=== PATIENT | female | born 1950 | race Caucasian/White ===

== ENCOUNTER → 2020-03-15 | Outpatient (CLI) | payer OTHER ==
[~2020-03-15] MED LIST: HYDROCODON-ACE1 EAC4 PO
== END ==
LOC: RAD 10:59
DX: M25.551 Pain in right hip (principal); M25.552 Pain in left hip
CPT/HCPCS: 73522

== ENCOUNTER → 2020-04-10 | Outpatient (CLI) | payer OTHER | LOC: ECHO 09:08 → CT 11:00 | DX: I08.0 Rheumatic disorders of both mitral and aortic valves (principal); I71.2 Thoracic aortic aneurysm, without rupture; J98.11 Atelectasis | CPT/HCPCS: ECHO; 36415; 71275; 82565; 93306; Q9967 ==

== ENCOUNTER 2020-06-10 19:13 | Emergency (ER) | payer OTHER ==
[2020-06-10] MEDS ORDERED: HYDROCODON-ACE1 EAC4 PO (21:30)
== END 2020-06-10 21:58 | disposition home or self-care (01) ==
LOC: ER1 19:13
DX: S42.302A Unspecified fracture of shaft of humerus, left arm, initial encounter for closed fracture (principal); I10 Essential (primary) hypertension; E03.9 Hypothyroidism, unspecified; Z88.8 Allergy status to other drugs, medicaments and biological substances; Z90.710 Acquired absence of both cervix and uterus; W01.0XXA Fall on same level from slipping, tripping and stumbling without subsequent striking against object, initial encounter; Y92.009 Unspecified place in unspecified non-institutional (private) residence as the place of occurrence of the external cause
CPT/HCPCS: 73060; 99283

== ENCOUNTER → 2020-06-20 | Outpatient (CLI) | payer OTHER | LOC: KOH-I 15:55 | DX: S42.292A Other displaced fracture of upper end of left humerus, initial encounter for closed fracture (principal); X58.XXXA Exposure to other specified factors, initial encounter | CPT/HCPCS: 73200 ==

== ENCOUNTER → 2020-11-08 | Outpatient (CLI) | payer OTHER | LOC: HEART 5 14:18 | DX: R00.2 Palpitations (principal) ==

== ENCOUNTER → 2021-05-03 | Outpatient (CLI) | payer OTHER | LOC: EXRD 05-01 10:15 | DX: R09.89 Other specified symptoms and signs involving the circulatory and respiratory systems (principal) | CPT/HCPCS: 93880 ==

== ENCOUNTER → 2021-05-11 | Outpatient (CLI) | payer OTHER | LOC: EXRD 08:59 | DX: K76.0 Fatty (change of) liver, not elsewhere classified (principal) | CPT/HCPCS: 76700 ==

== ENCOUNTER → 2021-08-08 | Outpatient (CLI) | payer OTHER | LOC: RAD 14:59 | DX: M46.1 Sacroiliitis, not elsewhere classified (principal); M54.51 Vertebrogenic low back pain; Z68.39 Body mass index [BMI] 39.0-39.9, adult; M51.36 Other intervertebral disc degeneration, lumbar region; M47.816 Spondylosis without myelopathy or radiculopathy, lumbar region | CPT/HCPCS: 72110 ==

== ENCOUNTER → 2021-08-20 | Outpatient (CLI) | payer OTHER | LOC: CT 07:57 | DX: Q25.49 Other congenital malformations of aorta (principal); I71.2 Thoracic aortic aneurysm, without rupture | CPT/HCPCS: 36415; 71275; 82565; 84520; Q9967 ==

== ENCOUNTER → 2021-10-17 | Outpatient (CLI) | payer OTHER | LOC: RAD 11:54 | DX: R05.9 Cough, unspecified (principal) | CPT/HCPCS: 71046 ==